=== PATIENT | male | born 1965 | race Caucasian/White ===

== ENCOUNTER 2017-08-16 14:37 | Emergency (ER) | payer SELFPAY ==
[2017-08-16] MEDS ORDERED: Benzocaine 20% Topical Spray UD MUCMEM ONE (15:13)
[2017-08-16] MEDS ORDERED: Lidocaine 2% Viscous Solution 15 ML Cup PO ONE (15:13)
--- NOTE | 2017-08-16 15:14 | EDM.PDOC ---
ED HPI GENERAL MEDICAL PROBLEM - General Chief Complaint: ENT Problem Stated Complaint: TOOTH PAIN Time Seen by Provider: 08/16/17 15:00 Source of Information: Reports: Patient History Limitations: Reports: No Limitations - History of Present Illness INITIAL COMMENTS - FREE TEXT/NARRATIVE: HISTORY AND PHYSICAL: History of present illness: [Comes to the emergency room complaining of dental pain. Has been present for the past 2-1/2 weeks. He had to cancel his dental appointment yesterday as he did not have any coverage at work. He complains of a throbbing sensation in his tooth which is not relieved by Aleve or Tylenol. Is now rescheduled to see the dentist on August 28. He requests an antibiotic because he believes his tooth is infected. He has a long history of poor dentition and dental infections.] Review of systems: As per history of present illness and below otherwise all systems reviewed and negative. Past medical history: As per history of present illness and as reviewed below otherwise noncontributory. Surgical history: As per history of present illness and as reviewed below otherwise noncontributory. Social history: No reported history of drug or alcohol abuse. Family history: As per history of present illness and as reviewed below otherwise noncontributory. Physical exam: HEENT: Atraumatic, normocephalic. Top of his teeth are ground down, consistent with teeth grinding. Tender with palpation over right upper incisor. Gums are erythematous and swollen surrounding this tooth. No drainage noted. TMs are pearly apple. Nares are patent and without discharge. Oral mucous members are pink and moist. Neck is supple. There is no lymphadenopathy. Neuro: Awake, alert, oriented. Motor and sensory unremarkable throughout. Exam nonfocal. Therapeutics: [Dental balls] Impression: [Dental pain] Plan: [Rx written for amoxicillin 500 mg #30 sig 1 by mouth 3 times a day total taken 0 refills, dental balls given. Patient is instructed to follow-up for his dental appointment as scheduled.] Definitive disposition and diagnosis as appropriate pending reevaluation and review of above. Tooth/Teeth Pain Score (Numeric/FACES): 10 - Related Data Allergies Allergy/AdvReac Type Severity Reaction Status Date / Time No Known Allergies Allergy Verified 08/16/17 14:56 Home Meds: Home Meds . [No Known Home Meds] 08/16/17 [History] Past Medical History - Past Health History Medical/Surgical History: Denies Medical/Surgical History - Infectious Disease History Infectious Disease History: Reports: Chicken Pox, Hepatitis C Social & Family History - Family History Family Medical History: Noncontributory - Tobacco Use Smoking Status *Q: Never Smoker - Recreational Drug Use Recreational Drug Use: No ED ROS ENT - Review of Systems Review Of Systems: ROS reveals no pertinent complaints other than HPI. ED EXAM, ENT - Physical Exam Exam: See Below Course - Vital Signs Last Recorded V/S: Last Vital Signs Temp 98.2 F 08/16/17 14:55 Pulse 81 08/16/17 14:55 Resp 18 08/16/17 14:55 BP 199/114 H 08/16/17 14:55 Pulse Ox 97 08/16/17 14:55 - Orders/Labs/Meds Meds: Medications Discontinued Medications Generic Name Dose Route Start Last Admin Trade Name Freq PRN Reason Stop Dose Admin Benzocaine 2 each 08/16/17 15:13 Hurricaine One 20% MUCMEM 08/16/17 15:14 ONETIME ONE Lidocaine HCl 15 ml 08/16/17 15:13 Xylocaine 2% Viscous PO 08/16/17 15:14 ONETIME ONE Departure - Departure Time of Disposition: 15:20 Disposition: Home, Self-Care 01 Condition: Good Clinical Impression: Pain, dental - Discharge Information Referrals: PCP,None [Primary Care Provider] - Forms: ED Department Discharge Additional Instructions: The following information is given to patients seen in the emergency department who are being discharged to home. This information is to outline your options for follow-up care. We provide all patients seen in our emergency department with a follow-up referral. The need for follow-up, as well as the timing and circumstances, are variable depending upon the specifics of your emergency department visit. If you don't have a primary care physician on staff, we will provide you with a referral. We always advise you to contact your personal physician following an emergency department visit to inform them of the circumstance of the visit and for follow-up with them and/or the need for any referrals to a consulting specialist. The emergency department will also refer you to a specialist when appropriate. This referral assures that you have the opportunity for follow-up care with a specialist. All of these measure are taken in an effort to provide you with optimal care, which includes your follow-up. Under all circumstances we always encourage you to contact your private physician who remains a resource for coordinating your care. When calling for follow-up care, please make the office aware that this follow-up is from your recent emergency room visit. If for any reason you are refused follow-up, please contact the [facility] emergency department at and asked to speak to the emergency department charge nurse. [facility] [address] [place] [id number] Establish care with a local primary care provider. Take medication as prescribed. Return to ER as needed as discussed.
== END 2017-08-16 15:40 | disposition home or self-care (01) ==
LOC: MW.ED 14:37
DX: K08.89 Other specified disorders of teeth and supporting structures (principal)
CPT/HCPCS: 99282; A9270; 99283

== ENCOUNTER 2019-11-14 09:09 | Emergency (ER) | payer SELFPAY ==
[2019-11-14] MEDS ORDERED: methylPREDNISolone Sodium Succinate 125 MG/2 ML SDV IVPUSH ONE (09:15)
[2019-11-14] MEDS ORDERED: EPINEPHrine 1 MG/ML SDV IM ONE (09:15)
[2019-11-14] MEDS ORDERED: Famotidine 20 MG/2 ML SDV IVPUSH ONE (09:22)
[2019-11-14] MEDS ORDERED: Famotidine 20 MG/2 ML SDV ONE (09:24)
--- NOTE | 2019-11-14 09:38 | EDM.PDOC ---
ED HPI GENERAL MEDICAL PROBLEM - General Chief Complaint: Allergic Reaction Stated Complaint: SWOLLEN LIPS Time Seen by Provider: 11/14/19 09:13 Source of Information: Reports: Patient History Limitations: Reports: No Limitations - History of Present Illness INITIAL COMMENTS - FREE TEXT/NARRATIVE: HISTORY OF PRESENT ILLNESS: Patient is a 53 year old male who presents with lip swelling since yesterday. Pt states yesterday it was worse on the lower lip , but now is progressively worsening in the upper lip. Denies any tongue or throat swelling. No difficulty swallowing. denies any chest pain or dyspnea. No rash. Has had this problem 3 times in the past which usually resolves with Benadryl. Pt took Benadryl 50 mg prior to arrival without relief. Pt has been on Lisinopril x years. Denies any new medications/products/foods/herbals/OTCs. REVIEW OF SYSTEMS: Other than the symptoms associated with the present events, the following is reported with regard to recent health: General: (-) fever. HENT: (-) congestion. Respiratory: (-) cough. Cardiovascular: (-) chest pain. GI: (-) abdominal pain. : (-) urinary complaints. Musculoskeletal: (-) other aches or pains. Endocrine: (-) generalized weakness. Neurological: (-) localized weakness. Skin: (-) rash PAST MEDICAL HISTORY: reviewed as per nursing notes SOCIAL HISTORY: reviewed as per nursing notes, MEDICATIONS: Per nurse's note ALLERGIES: Per nurse's note, reviewed by me PHYSICAL EXAMINATION: GENERALIZED APPEARANCE: well developed, well nourished in mild distress VITAL SIGNS: Per nurse's note, reviewed by me SKIN: Warm, dry; (-) cyanosis; (-) rash. HEAD: (-) scalp swelling, (-) tenderness. EYES: (-) conjunctival pallor, (-) scleral icterus. ENMT: (-) stridor; mucous membranes moist. bilateral lip swelling, worse on upper lip. no tongue swelling. uvula midline. no phonation changes. no trismus. airway widely patent NECK: (-) tenderness, (-) stiffness, CHEST AND RESPIRATORY: (-) rales, (-) rhonchi, (-) wheezes; breath sounds equal bilaterally. HEART AND CARDIOVASCULAR: (-) irregularity; (-) murmur, (-) gallop. ABDOMEN AND GI: Soft; (-) tenderness, (-) guarding, (-) rebound, (-) palpable masses, EXTREMITIES: (-) deformity, (-) edema. NEURO AND PSYCH: Alert. Cranial nerves grossly intact; strength symmetric. gait steady EMERGENCY DEPARTMENT COURSE AND TREATMENT: Patient's condition remained stable during Emergency Department evaluation. Given Epinephrine (1:1000) 0.3 mg IM, Pepcid 20 mg IV, Solumedrol 125 mg IV. Placed on hospital monitor. No evidence of tongue/throat or airway involvement. No cp or dyspnea. No worsening of lip swelling. Pt told to discontinue Lisinopril until told otherwise by his pcp. To follow up with pcp without fail tomorrow and have BP medication changed. Return immediately with any new or worsening symptoms. PLAN AND FOLLOW-UP: Patient received written and verbal instructions regarding this condition. Return to ED immediately with any new or worsening symptoms. Follow up to be arranged by patient with pcp tomorrow for further evaluation. Discontinue Lisinopril until told otherwise by pcp. Will discharge on Benadryl and Prednisone. Given discharge precautions. Patient expressed verbal understanding. lips Pain Score (Numeric/FACES): 10 - Related Data Allergies Allergy/AdvReac Type Severity Reaction Status Date / Time No Known Allergies Allergy Verified 11/14/19 09:21 Home Meds: Home Meds diphenhydrAMINE [Benadryl] 25 mg PO QID PRN #30 tablet 11/14/19 [Rx] hydroCHLOROthiazide [Hydrochlorothiazide] mg PO DAILY 11/14/19 [History] predniSONE [Prednisone] 50 mg PO DAILY #5 tablet 11/14/19 [Rx] Past Medical History - Past Health History Medical/Surgical History: Denies Medical/Surgical History Cardiovascular History: Reports: Hypertension Respiratory History: Reports: None Gastrointestinal History: Reports: None Genitourinary History: Reports: None Musculoskeletal History: Reports: Fracture, Other (See Below) Other Musculoskeletal History: left arm Neurological History: Reports: None Psychiatric History: Reports: None Endocrine/Metabolic History: Reports: None Hematologic History: Reports: None Immunologic History: Reports: None Dermatologic History: Reports: None - Infectious Disease History Infectious Disease History: Reports: Chicken Pox, Hepatitis C - Past Surgical History HEENT Surgical History: Reports: Adenoidectomy, Oral Surgery, Tonsillectomy Social & Family History - Family History Family Medical History: Noncontributory - Caffeine Use Caffeine Use: Reports: Energy [employer]inks ED ROS ALLERGIC REACTION - Review of Systems Review Of Systems: See Below (see dictation) ED EXAM GENERAL NO PERIP PULSE - Physical Exam Exam: See Below (see dictation) Course - Vital Signs Last Recorded V/S: Last Vital Signs Temp 97.8 F 11/14/19 09:15 Pulse 70 11/14/19 09:31 Resp 16 11/14/19 09:31 BP 147/92 H 11/14/19 09:15 Pulse Ox 96 11/14/19 09:31 - Orders/Labs/Meds Orders: Active Orders 24 hr Category Date Time Status Cardiac Monitoring [RC] . DIRECTED Care 11/14/19 09:15 Active Meds: Medications Discontinued Medications Generic Name Dose Route Start Last Admin Trade Name Freq PRN Reason Stop Dose Admin Epinephrine HCl 0.3 mg 11/14/19 09:15 11/14/19 09:25 Adrenalin IM 11/14/19 09:16 0.3 mg ONETIME ONE Administration Famotidine 20 mg 11/14/19 09:22 11/14/19 09:29 Pepcid IVPUSH 11/14/19 09:23 20 mg ONETIME ONE Administration Famotidine Confirm 11/14/19 09:24 11/14/19 09:29 Pepcid Administered 11/14/19 09:25 Not Given Dose 20 mg .ROUTE .STK-MED ONE Methylprednisolone Sodium Succinate 125 mg 11/14/19 09:15 11/14/19 09:30 Solu-Medrol IVPUSH 11/14/19 09:16 125 mg ONETIME ONE Administration Departure - Departure Time of Disposition: 10:10 Disposition: Home, Self-Care 01 Condition: Good Clinical Impression: Angioedema of lips - Discharge Information *PRESCRIPTION DRUG MONITORING PROGRAM REVIEWED*: Not Applicable *COPY OF PRESCRIPTION DRUG MONITORING REPORT IN PATIENT DARLENE: Not Applicable Prescriptions: diphenhydrAMINE [Benadryl] 25 mg PO QID PRN #30 tablet PRN Reason: swelling predniSONE [Prednisone] 50 mg PO DAILY #5 tablet Instructions: Angioedema, [id number] Forms: ED Department Discharge Additional Instructions: The following information is given to patients seen in the emergency department who are being discharged to home. This information is to outline your options for follow-up care. We provide all patients seen in our emergency department with a follow-up referral. The need for follow-up, as well as the timing and circumstances, are variable depending upon the specifics of your emergency department visit. If you don't have a primary care physician on staff, we will provide you with a referral. We always advise you to contact your personal physician following an emergency department visit to inform them of the circumstance of the visit and for follow-up with them and/or the need for any referrals to a consulting specialist. The emergency department will also refer you to a specialist when appropriate. This referral assures that you have the opportunity for follow-up care with a specialist. All of these measure are taken in an effort to provide you with optimal care, which includes your follow-up. Under all circumstances we always encourage you to contact your private physician who remains a resource for coordinating your care. When calling for follow-up care, please make the office aware that this follow-up is from your recent emergency room visit. If for any reason you are refused follow-up, please contact the [facility] Emergency Department at and asked to speak to the emergency department charge nurse. Sepsis Event Note - Evaluation Sepsis Screening Result: No Definite Risk - Focused Exam Vital Signs: Vital Signs Temp Pulse Resp BP Pulse Ox 11/14/19 09:31 70 16 96 11/14/19 09:15 97.8 F 69 16 147/92 H 95 Date Exam was Performed: 11/14/19 Time Exam was Performed: 10:13 - My Orders Last 24 Hours: My Active Orders 11/14/19 09:15 Cardiac Monitoring [RC] . DIRECTED - Assessment/Plan Last 24 Hours: My Active Orders 11/14/19 09:15 Cardiac Monitoring [RC] . DIRECTED
== END 2019-11-14 11:11 | disposition home or self-care (01) ==
LOC: MW.ED 09:09
DX: T78.3XXA Angioneurotic edema, initial encounter (principal); I10 Essential (primary) hypertension; Z79.899 Other long term (current) drug therapy
CPT/HCPCS: 96372; 96374; 96375; 99283; J0171; J2930; S0028; J3490

== ENCOUNTER 2021-09-12 09:40 | Emergency (ER) | payer SELFPAY ==
[2021-09-12] MEDS ORDERED: Ketorolac 60 MG/2 ML SDV IM ONE (10:15)
[2021-09-12] MEDS ORDERED: Sodium Chloride 0.9% 10 ML Syringe FLUSH PRN (10:18)
[2021-09-12] MEDS ORDERED: Sodium Chloride 0.9% 2.5 ML Syringe FLUSH PRN (10:18)
[2021-09-12] MEDS ORDERED: Ketorolac 30 MG/ML SDV IVPUSH ONE (10:18)
--- NOTE | 2021-09-12 10:27 | EDM.PDOC ---
ED HPI GENERAL MEDICAL PROBLEM - General Chief Complaint: General Stated Complaint: RIB PAIN Time Seen by Provider: 09/12/21 09:57 Source of Information: Reports: Patient History Limitations: Reports: No Limitations - History of Present Illness INITIAL COMMENTS - FREE TEXT/NARRATIVE: HISTORY AND PHYSICAL: History of present illness: The patient is a 55-year-old male who presents to the emergency department with complaints of difficulty breathing after falling over 8 foot 3 days ago when he was working on his MRI and his foot slipped off the ladder. The patient fell onto his left lower lateral trunk. The patient stated that his wind was knocked out of him however he was able to get up and complete work. Patient states the next day he was pretty sore but again he was able to tolerate it. The patient then said yesterday he was putting up a fence and was unable to sleep in his chair last night and has been in increased pain all day today. The patient only took 2 aspirin on the first day. He has not taken any uuko-jhb-zohoyli medications. The patient denies striking his head or any other injury. Patient denies any fever, chills, headache, change in vision, syncope or near syncope. Denies any chest pain, or cough. Denies any nausea, vomiting, diarrhea, constipation or dysuria. Has not noted any blood in urine or stool. Patient has been eating and drinking appropriately. The patient states that his tetanus less than less than 5 years ago. The patient has not been vaccinated against COVID-19. Review of systems: As per history of present illness and below otherwise all systems reviewed and negative. Past medical history: As per history of present illness and as reviewed below otherwise noncontributory. Surgical history: As per history of present illness and as reviewed below otherwise noncontributory. Social history: See social history for further information Family history: As per history of present illness and as reviewed below otherwise noncontributory. Physical exam: General: Well developed and well nourished. Alert and orientated x 3. Nontoxic in appearance and in no acute distress. Vital signs are stable and have been reviewed by me. Nursing notes were reviewed. HEENT: Atraumatic, normocephalic, pupils equal and reactive bilaterally, negative for conjunctival pallor or scleral icterus, mucous membranes moist, TMs normal bilaterally, throat clear, neck supple, nontender, trachea midline. No drooling or trismus noted. No meningeal signs. No hot potato voice noted. Lungs: Clear to auscultation bilaterally. No wheezes, rales, or rhonchi. Chest nontender. Normal work of breathing, no accessory muscles used. Heart: S1S2, regular rate and rhythm without overt murmur, gallops, or rubs. No JVD. No peripheral edema Abdomen: Soft, nondistended, left lateral flank tenderness. Normoactive bowel sounds. Negative for masses or costovertebral tenderness. Skin: Intact, warm, dry. Bruising nose left lower flank with a scabbed 2 cm horizontal laceration. Hematologic: No petechiae or purpra. Mucosa appropriate color and normal nail bed color and refill. Extremities: Atraumatic, moves all extremities per self without difficulty or deficits, negative for cords or calf pain. Neurovascular unremarkable. Neuro: Awake, alert, oriented. Cranial nerves II through XII unremarkable. Cerebellum unremarkable. Motor and sensory unremarkable throughout. Exam nonfocal. Psychiatric: Mood and affect are appropriate. Normal thought process. Answering questions appropriately. Notes: *This patient was seen and evaluated during the 2019 SARS-CoV-2 novel coronavirus pandemic period. Community viral transmission is ongoing at time of this encounter and the emergency department is operating under pandemic response procedures. Dr. Hooks was consulted on the case. Stated above the patient is a 55-year-old male who fell over 8 feet landing on his left lateral flank 3 days ago. The patient was not in too much discomfort until he put up fencing yesterday and today his pain has increased. The patient did state that he has had to sleep in a recliner for the last 3 days. Due to the nature of the fall we will obtain blood work, and a abdomen pelvis CT. I will treat the patient's pain with Toradol. The patient is agreeable with this plan. The patient's blood work is unremarkable as is his urine. The patient's CT impre ssion: Fracture of the lateral left ninth and eighth ribs. I have instructed the patient on appropriate activity for rib fractures. I have prescribed the patient [place] 325/5 mg 1 every 4-6 hours as needed for pain. I have also given the patient an incentive spirometer to use frequently throughout the day to prevent pneumonia. I advised the patient to follow-up with his primary care provider. The patient is agreeable with this discharge plan. The patient stated he does not need a note for work. I have talked with the patient about today's findings, in addition to providing specific details for plan of care. Reassessment at the time of disposition demonstrates that the patient is in no acute distress. The patient is stable for discharge, counseling was provided and we discussed in great detail signs and symptoms that would prompt them to return to the Emergency Department. Medication, follow up and supportive care measures were reviewed and discussed. Voices understanding and is agreeable to plan of care. Denies any further questions or concerns at this time. Diagnostics: CBC, CMP, CT abdomen/pelvis with contrast Therapeutics: Toradol Prescription: [place] 325/5 mg 1 every 4-6 hours as needed for pain #16 Impression: Fall, contusion, 8 and 9 fractured rib Plan: 1. You were evaluated today on an emergent basis. Your left side flank pain was evaluated with a CT and blood work. Your blood work was normal and there was no blood in your urinalysis. Your CT revealed a 9th and eighth rib fracture on the left side. I have given you [place] 325/5 mg 1 every 4-6 hours as needed for pain. You are handed a paper prescription for the medication. Not drive when you are taking this medication. This medication can cause constipation so I recommend taking a stool softener. I have given you an incentive spirometer with directions for use you use need to do this at least every 2-4 hours a day while taking the narcotics. This is to prevent pneumonia. If you become short of breath and are unable to tolerate the pain please return to the emergency department. 2. You can alternate Tylenol and ibuprofen as needed for pain and fever management. 3. We encourage you to follow up with your primary care provider and/or recommended specialist in the next few days for re-evaluation and further care/management. 4. If your symptoms should worsen, new symptoms develop or any of the signs and symptoms we discussed should arise please return to the emergency room or call 911 (if needed). Definitive disposition and diagnosis as appropriate pending reevaluation and review of above. Generalized Pain Score (Numeric/FACES): 7 - Related Data Allergies Allergy/AdvReac Type Severity Reaction Status Date / Time lisinopril Allergy Facial Verified 09/12/21 09:58 Swelling Home Meds: Home Meds hydroCHLOROthiazide [Hydrochlorothiazide] mg PO DAILY 11/14/19 [History] amLODIPine [Norvasc] 10 mg PO 09/12/21 [History] Past Medical History - Past Health History Medical/Surgical History: Denies Medical/Surgical History Cardiovascular History: Reports: Hypertension Respiratory History: Reports: None Gastrointestinal History: Reports: None Genitourinary History: Reports: None Musculoskeletal History: Reports: Fracture, Other (See Below) Other Musculoskeletal History: left arm Neurological History: Reports: None Psychiatric History: Reports: None Endocrine/Metabolic History: Reports: None Hematologic History: Reports: None Immunologic History: Reports: None Dermatologic History: Reports: None - Infectious Disease History Infectious Disease History: Reports: Chicken Pox, Hepatitis C - Past Surgical History HEENT Surgical History: Reports: Adenoidectomy, Oral Surgery, Tonsillectomy Social & Family History - Family History Family Medical History: No Pertinent Family History - Tobacco Use Tobacco Use Status *Q: Current Some Day Tobacco User Years of Tobacco use: 10 Packs/Tins Daily: 0.2 - Caffeine Use Caffeine Use: Reports: Energy Drinks - Recreational Drug Use Recreational Drug Use: No ED ROS GENERAL - Review of Systems Review Of Systems: Comprehensive ROS is negative, except as noted in HPI. ED EXAM, GENERAL - Physical Exam Exam: See Below (See dictation) Course - Vital Signs Last Recorded V/S: Last Vital Signs Temp 97.6 F 09/12/21 12:33 Pulse 79 09/12/21 12:33 Resp 16 09/12/21 12:33 BP 129/78 09/12/21 12:33 Pulse Ox 96 09/12/21 12:33 - Orders/Labs/Meds Orders: Active Orders 24 hr Category Date Time Status Saline Lock Insert [OM.PC] Stat Oth 09/12/21 10:19 Ordered Labs: Laboratory Tests 09/12/21 09/12/21 09/12/21 Range/Units 10:16 10:59 10:59 WBC 5.33 (4.0-11.0) K/uL RBC 4.30 L (4.50-5.90) M/uL Hgb 13.5 (13.0-17.0) g/dL Hct 38.9 (38.0-50.0) % MCV 90.5 (80.0-98.0) fL MCH 31.4 (27.0-32.0) pg MCHC 34.7 (31.0-37.0) g/dL RDW Std Deviation 41.7 (28.0-62.0) fl RDW Coeff of Myesha 13 (11.0-15.0) % Plt Count 228 (150-400) K/uL MPV 10.20 (7.40-12.00) fL Neut % (Auto) 68.5 (48.0-80.0) % Lymph % (Auto) 19.9 (16.0-40.0) % Sharp % (Auto) 10.1 (0.0-15.0) % Eos % (Auto) 1.3 (0.0-7.0) % Baso % (Auto) 0.2 (0.0-1.5) % Neut # (Auto) 3.7 (1.4-5.7) K/uL Lymph # (Auto) 1.1 (0.6-2.4) K/uL Sharp # (Auto) 0.5 (0.0-0.8) K/uL Eos # (Auto) 0.1 (0.0-0.7) K/uL Baso # (Auto) 0.0 (0.0-0.1) K/uL Nucleated RBC % 0.0 /100WBC Nucleated RBCs # 0 K/uL Sodium 134 L (136-148) mmol/L Potassium 3.8 (3.5-5.1) mmol/L Chloride 96 L (98-107) mmol/L Carbon Dioxide 27.2 (21.0-32.0) mmol/L BUN 18 (7.0-18.0) mg/dL Creatinine 0.9 (0.8-1.3) mg/dL Est Cr Clr Drug Dosing 89.72 mL/min Estimated GFR (MDRD) > 60.0 ml/min Glucose 68 L (74-106) mg/dL Calcium 7.9 L (8.5-10.1) mg/dL Total Bilirubin 0.5 (0.2-1.0) mg/dL AST 41 H (15-37) IU/L ALT 58 (14-63) IU/L Alkaline Phosphatase 83 (46-116) U/L Total Protein 7.2 (6.4-8.2) g/dL Albumin 3.1 L (3.4-5.0) g/dL Globulin 4.1 H (2.6-4.0) g/dL Albumin/Globulin Ratio 0.8 L (0.9-1.6) Urine Color YELLOW Urine Appearance CLEAR Urine pH 6.0 (5.0-8.0) Ur Specific [place] 1.015 (1.001-1.035) Urine Protein NEGATIVE (NEGATIVE) mg/dL Urine Glucose (UA) NEGATIVE (NEGATIVE) mg/dL Urine Ketones NEGATIVE (NEGATIVE) mg/dL Urine Occult Blood NEGATIVE (NEGATIVE) Urine Nitrite NEGATIVE (NEGATIVE) Urine Bilirubin NEGATIVE (NEGATIVE) Urine Urobilinogen 0.2 (<2.0) EU/dL Ur Leukocyte Esterase NEGATIVE (NEGATIVE) Meds: Medications Discontinued Medications Generic Name Dose Route Start Last Admin Trade Name Freq PRN Reason Stop Dose Admin Ketorolac Tromethamine 60 mg 09/12/21 10:15 Ketorolac 60 Mg/2 Ml Sdv IM 09/12/21 10:16 ONETIME ONE Ketorolac Tromethamine 30 mg 09/12/21 10:18 09/12/21 11:00 Ketorolac 30 Mg/Ml Sdv IVPUSH 09/12/21 10:19 30 mg ONETIME ONE Administration Sodium Chloride 10 ml 09/12/21 10:18 09/12/21 11:04 Sodium Chloride 0.9% 10 Ml Syringe FLUSH 10 ml ASDIRECTED PRN Administration Keep Vein Open Sodium Chloride 2.5 ml 09/12/21 10:18 09/12/21 11:04 Sodium Chloride 0.9% 2.5 Ml Syringe FLUSH 2.5 ml ASDIRECTED PRN Administration Keep Vein Open Departure - Departure Time of Disposition: 12:09 Disposition: Home, Self-Care 01 Condition: Good Clinical Impression: Fall Qualifiers: Encounter type: initial encounter Qualified Code(s): W19.XXXA - Unspecified fall, initial encounter Ribs, multiple fractures Qualifiers: Encounter type: initial encounter Fracture type: closed Laterality: left Qualified Code(s): S22.42XA - Multiple fractures of ribs, left side, initial encounter for closed fracture - Discharge Information *PRESCRIPTION DRUG MONITORING PROGRAM REVIEWED*: No *COPY OF PRESCRIPTION DRUG MONITORING REPORT IN PATIENT DARLENE: No Instructions: Rib Fracture, [id number] Referrals: Erasmo Grove MD [Primary Care Provider] - Forms: ED Department Discharge Additional Instructions: The following information is given to patients seen in the emergency department who are being discharged to home. This information is to outline your options for follow-up care. We provide all patients seen in our emergency department with a follow-up referral. The need for follow-up, as well as the timing and circumstances, are variable depending upon the specifics of your emergency department visit. If you don't have a primary care physician on staff, we will provide you with a referral. We always advise you to contact your personal physician following an emergency department visit to inform them of the circumstance of the visit and for follow-up with them and/or the need for any referrals to a consulting specialist. The emergency department will also refer you to a specialist when appropriate. This referral assures that you have the opportunity for follow-up care with a specialist. All of these measure are taken in an effort to provide you with optimal care, which includes your follow-up. Under all circumstances we always encourage you to contact your private physician who remains a resource for coordinating your care. When calling for follow-up care, please make the office aware that this follow-up is from your recent emergency room visit. If for any reason you are refused follow-up, please contact the [facility] Emergency Department at and asked to speak to the emergency department charge nurse. [facility] - [facility] [address] [place], [place] [id number] [place] [address] Plan: 1. You were evaluated today on an emergent basis. Your left side flank pain was evaluated with a CT and blood work. Your blood work was normal and there was no blood in your urinalysis. Your CT revealed 1/9 and eighth rib fracture on the left side. I have given you [place] 325/5 mg 1 every 4-6 hours as needed for pain. You are handed a paper prescription for the medication. Not drive when you are taking this medication. This medication can cause constipation so I recommend taking a stool softener. I have given you an incentive spirometer with directions for use you use need to do this at least every 2-4 hours a day while taking the narcotics. This is to prevent pneumonia. If you become short of breath and are unable to tolerate the pain please return to the emergency department. 2. You can alternate Tylenol and ibuprofen as needed for pain and fever management. 3. We encourage you to follow up with your primary care provider and/or recommended specialist in the next few days for re-evaluation and further care/management. 4. If your symptoms should worsen, new symptoms develop or any of the signs and symptoms we discussed should arise please return to the emergency room or call 911 (if needed). Sepsis Event Note (ED) - Evaluation Sepsis Screening Result: No Definite Risk - Focused Exam Vital Signs: Vital Signs Temp Pulse Resp BP Pulse Ox 09/12/21 12:33 97.6 F 79 16 129/78 96 09/12/21 11:04 87 16 113/72 96 09/12/21 09:51 97.8 F 89 16 132/86 98 - My Orders Last 24 Hours: My Active Orders 09/12/21 10:19 Saline Lock Insert [OM.PC] Stat - Assessment/Plan Last 24 Hours: My Active Orders 09/12/21 10:19 Saline Lock Insert [OM.PC] Stat
--- NOTE | 2021-09-12 11:10 | CT ---
Indication: Fell 8 feet. Pain left lateral side. Technique: Multiple contiguous axial images were obtained from the lung bases is symphysis pubis after the intravenous administration of 100 cc Isovue 370. Please note that all CT scans at this facility use dose modulation, iterative reconstruction, and/or weight-based dosing when appropriate to reduce radiation dose to as low as reasonably achievable. Comparison: None Findings: Bibasilar atelectasis is identified. The heart is normal in size. No pericardial effusion is identified. Mild diffuse fatty infiltration of the liver is identified. The liver, spleen, pancreas, adrenals, and kidneys are otherwise normal. No intrahepatic biliary ductal dilatation is identified. No hydronephrosis is identified. Aortic calcifications are identified. The small and large bowel are normal in caliber. No free fluid or free air is identified within the abdomen or pelvis. The aorta is normal in caliber. No fracture or subluxation of the pelvis is identified. The vertebral body heights are well maintained. A fracture of the lateral left 9th and 8th ribs are identified. Impression: Fracture of the lateral left 9th and 8th ribs. Please note that all CT scans at this facility use dose modulation, iterative reconstruction, and/or weight-based dosing when appropriate to reduce radiation dose to as low as reasonably achievable. Dictated by Reema Kern MD @ 09/12/2021 11:09:55 AM (Electronically Signed)
[2021-09-12 11:32] LABS: BLOOD UREA NITROGEN,BUN 18 mg/dL (7.0-18.0); CARBON DIOXIDE,CO2 27.2 mmol/L (21.0-32.0); CHLORIDE,CL 96 mmol/L (98-107); GLUCOSE RANDOM 68 mg/dL (74-106); POTASSIUM,K 3.8 mmol/L (3.5-5.1); SODIUM,NA 134 mmol/L (136-148)
[2021-09-12] MEDS ORDERED: Iopamidol 755 MG/ML 500 ML Multipack Bottle IVPUSH ONE (17:27)
== END 2021-09-12 12:43 | disposition home or self-care (01) ==
LOC: MW.ED 09:40
DX: S22.42XA Multiple fractures of ribs, left side, initial encounter for closed fracture (principal); S31.119A Laceration without foreign body of abdominal wall, unspecified quadrant without penetration into peritoneal cavity, initial encounter; I10 Essential (primary) hypertension; Z88.8 Allergy status to other drugs, medicaments and biological substances; Z79.899 Other long term (current) drug therapy; Z72.0 Tobacco use; W11.XXXA Fall on and from ladder, initial encounter
CPT/HCPCS: 36415; 74177; 80053; 81003; 85025; 96374; 99284; J1885; Q9967